=== PATIENT | male | born 1965 | race African-American/Black ===

== ENCOUNTER 2020-10-14 07:13 | Emergency (ER) | payer OTHER ==
[2020-10-14 07:18] VITALS: TEMP 97.8
[2020-10-14 07:41] LABS: Basophils % (A) 0 %; Eosinophils # (A) 0.4 k/uL (0-0.7); Eosinophils % (A) 7 %; HCT 38.7 % (39.0-53.0); HGB 12.6 gm/dL (13.0-17.5); Lymphocytes # (A) 1.6 k/uL (1.0-4.8); Lymphocytes % (A) 32 %; MCH 30.5 pg (25.0-35.0); MCHC 32.6 g/dL (31.0-37.0); MCV 93.5 fL (80.0-100.0); Mean Platelet Volume 7.4; Monocytes # (A) 0.3 k/uL (0-1.0); Monocytes % (A) 6 %; Neutrophils # (A) 2.6 k/uL (1.3-7.7); Neutrophils % (A) 50 %; Platelet Count 271 k/uL (150-450); RBC 4.13 m/uL (4.30-5.90); RDW 13.8 % (11.5-15.5); WBC 5.2 k/uL (3.8-10.6)
--- NOTE | 2020-10-14 07:45 | ED ---
General Adult HPI - General Chief complaint: Neuro Symptoms/Deficit Stated complaint: Blurred Vision,Dizziness Time Seen by Provider: 10/14/20 07:19 Source: patient, RN notes reviewed, old records reviewed Mode of arrival: ambulatory Limitations: no limitations - History of Present Illness Initial comments: 55 yo female presenting with multiple complaints. Patient states he has had some headache, lightheadedness, intermittent chest discomfort and exertional dyspnea. The symptoms have all been progressing over the past several weeks but worsened specifically over the past one week. He denies focal numbness or weakness. He does feel unsteady on his feet. Headache is predominantly occipital. Not the worse headache of his life, not a thunderclap headache. He has some discomfort in his chest with associated dyspnea as well. He has a history of hypertension currently on lisinopril. - Related Data Previous Rx's Medication Instructions Recorded Meclizine [Antivert] 25 mg PO TID PRN #21 tab 10/14/20 Allergies Allergy/AdvReac Type Severity Reaction Status Date / Time No Known Allergies Allergy Verified 10/14/20 07:16 Review of Systems ROS Statement: Those systems with pertinent positive or pertinent negative responses have been documented in the HPI. ROS Other: All systems not noted in ROS Statement are negative. Past Medical History Past Medical History: Hypertension History of Any Multi-Drug Resistant Organisms: None Reported Past Surgical History: No Surgical Hx Reported Past Psychological History: No Psychological Hx Reported, Depression Smoking Status: Current every day smoker Past Alcohol Use History: None Reported Past Drug Use History: None Reported General Exam Limitations: no limitations General appearance: alert, in no apparent distress Head exam: Present: atraumatic, normocephalic Eye exam: Present: normal appearance, PERRL ENT exam: Present: normal exam Neck exam: Present: normal inspection. Absent: tenderness, meningismus Respiratory exam: Present: normal lung sounds bilaterally. Absent: respiratory distress, wheezes Cardiovascular Exam: Present: regular rate, normal rhythm Extremities exam: Present: normal inspection, normal capillary refill. Absent: pedal edema Neurological exam: Present: alert, oriented X3, CN II-XII intact, other (No focal weakness, no limb ataxia). Absent: motor sensory deficit Psychiatric exam: Present: normal affect, normal mood Skin exam: Present: warm, dry, intact. Absent: cyanosis, diaphoretic Course Vital Signs 10/14/20 10/14/20 07:16 08:32 Temperature 97.8 F Pulse Rate 63 55 L Respiratory 18 16 Rate Blood Pressure 163/79 150/86 O2 Sat by Pulse 99 99 Oximetry EKG Findings - EKG Comments: EKG Findings:: EKG: Sinus bradycardia with a first-degree AV block, rate 54, MI interval 226, QRS duration 92, QTC 417, no ST segment elevation. Medical Decision Making - Medical Decision Making 55-year-old with intermittent symptoms over the month including some intermittent blurred vision, headache, dizziness, and chest discomfort. He does not currently have a primary care physician. He has no focal numbness or weakness. He has no ataxia. He is overall well-appearing. NIH is 0. Symptoms have been ongoing for one month. Head CT performed which is negative for intracranial hemorrhage or mass effect. Chest x-rays negative for acute cardiopulmonary findings. He is mildly anemic with a hemoglobin of 12.6, no oth er lab abnormalities including normal CMP, normal CBC with the exception of anemia and a negative troponin. His EKG is sinus bradycardia with a first- degree AV block. He is on a beta indio. He is given referral to both primary care physician and to a neurologist regarding these ongoing symptoms. He is given strict return parameters. - Lab Data Result diagrams: 10/14/20 07:34 10/14/20 07:34 Lab Results 10/14/20 10/14/20 10/14/20 Range/Units 07:34 07:34 07:34 WBC 5.2 (3.8-10.6) k/uL RBC 4.13 L (4.30-5.90) m/uL Hgb 12.6 L (13.0-17.5) gm/dL Hct 38.7 L (39.0-53.0) % MCV 93.5 (80.0-100.0) fL MCH 30.5 (25.0-35.0) pg MCHC 32.6 (31.0-37.0) g/dL RDW 13.8 (11.5-15.5) % Plt Count 271 (150-450) k/uL MPV 7.4 Neutrophils % 50 % Lymphocytes % 32 % Monocytes % 6 % Eosinophils % 7 % Basophils % 0 % Neutrophils # 2.6 (1.3-7.7) k/uL Lymphocytes # 1.6 (1.0-4.8) k/uL Monocytes # 0.3 (0-1.0) k/uL Eosinophils # 0.4 (0-0.7) k/uL Basophils # 0.0 (0-0.2) k/uL PT 10.3 (9.0-12.0) sec INR 1.0 (<1.2) APTT 24.5 (22.0-30.0) sec Sodium 141 (137-145) mmol/L Potassium 4.5 (3.5-5.1) mmol/L Chloride 107 (98-107) mmol/L Carbon Dioxide 30 (22-30) mmol/L Anion Gap 4 mmol/L BUN 16 (9-20) mg/dL Creatinine 0.69 (0.66-1.25) mg/dL Est GFR (CKD-EPI)AfAm >90 (>60 ml/min/1.73 sqM) Est GFR (CKD-EPI)NonAf >90 (>60 ml/min/1.73 sqM) Glucose 115 H (74-99) mg/dL Calcium 9.2 (8.4-10.2) mg/dL Total Bilirubin 0.7 (0.2-1.3) mg/dL AST 47 (17-59) U/L ALT 57 H (4-49) U/L Alkaline Phosphatase 64 (38-126) U/L Troponin I (0.000-0.034) ng/mL Total Protein 7.6 (6.3-8.2) g/dL Albumin 4.1 (3.5-5.0) g/dL 10/14/20 Range/Units 07:34 WBC (3.8-10.6) k/uL RBC (4.30-5.90) m/uL Hgb (13.0-17.5) gm/dL Hct (39.0-53.0) % MCV (80.0-100.0) fL MCH (25.0-35.0) pg MCHC (31.0-37.0) g/dL RDW (11.5-15.5) % Plt Count (150-450) k/uL MPV Neutrophils % % Lymphocytes % % Monocytes % % Eosinophils % % Basophils % % Neutrophils # (1.3-7.7) k/uL Lymphocytes # (1.0-4.8) k/uL Monocytes # (0-1.0) k/uL Eosinophils # (0-0.7) k/uL Basophils # (0-0.2) k/uL PT (9.0-12.0) sec INR (<1.2) APTT (22.0-30.0) sec Sodium (137-145) mmol/L Potassium (3.5-5.1) mmol/L Chloride (98-107) mmol/L Carbon Dioxide (22-30) mmol/L Anion Gap mmol/L BUN (9-20) mg/dL Creatinine (0.66-1.25) mg/dL Est GFR (CKD-EPI)AfAm (>60 ml/min/1.73 sqM) Est GFR (CKD-EPI)NonAf (>60 ml/min/1.73 sqM) Glucose (74-99) mg/dL Calcium (8.4-10.2) mg/dL Total Bilirubin (0.2-1.3) mg/dL AST (17-59) U/L ALT (4-49) U/L Alkaline Phosphatase (38-126) U/L Troponin I <0.012 (0.000-0.034) ng/mL Total Protein (6.3-8.2) g/dL Albumin (3.5-5.0) g/dL Disposition Clinical Impression: Headache, Vertigo Disposition: HOME SELF-CARE Condition: Fair Instructions (If sedation given, give patient instructions): Acute Headache (ED), Vertigo (ED) Additional Instructions: Please take 81 mg aspirin daily. Please establish care with a primary care physician and please follow up with neurology regarding these ongoing symptoms. Please return with worsening or changing symptoms. Prescriptions: Meclizine [Antivert] 25 mg PO TID PRN #21 tab PRN Reason: Vertigo Is patient prescribed a controlled substance at d/c from ED?: No Referrals: Nonstaff,Physician [Primary Care Provider] - 1-2 days Luisa Dunaway MD [REFERRING] - 1-2 days Jayna Pérez MD [REFERRING] - 1-2 days Nando Ordaz MD [STAFF PHYSICIAN] - 1-2 days Time of Disposition: 08:34
[2020-10-14 07:50] LABS: ALT 57 U/L (4-49); AST 47 U/L (17-59); African American GFR (CKD) >90 (>60 ml/min/1.73 sqM); Albumin 4.1 g/dL (3.5-5.0); Alkaline Phosphatase 64 U/L (38-126); Anion Gap 4 mmol/L; Blood Urea Nitrogen 16 mg/dL (9-20); Calcium 9.2 mg/dL (8.4-10.2); Carbon Dioxide 30 mmol/L (22-30); Chloride 107 mmol/L (98-107); Glucose 115 mg/dL (74-99); Non-African American GFR(CKD) >90 (>60 ml/min/1.73 sqM); Potassium 4.5 mmol/L (3.5-5.1); Sodium 141 mmol/L (137-145); Total Bilirubin 0.7 mg/dL (0.2-1.3); Total Protein 7.6 g/dL (6.3-8.2)
[2020-10-14 07:52] LABS: Partial Thromboplastin Time 24.5 sec (22.0-30.0); Prothrombin Time 10.3 sec (9.0-12.0)
--- NOTE | 2020-10-14 07:58 | XR ---
EXAMINATION TYPE: XR chest 2V DATE OF EXAM: 10/14/2020 COMPARISON: NONE HISTORY: Chest pain. Dizziness. TECHNIQUE: Frontal and lateral views of the chest are obtained. FINDINGS: Overlying EKG leads. There is no focal air space opacity, pleural effusion, or pneumothorax seen. The cardiac silhouette size is within normal limits. Multilevel spurring in the thoracic spin e. IMPRESSION: No acute cardiopulmonary process.
--- NOTE | 2020-10-14 07:59 | CT ---
EXAMINATION TYPE: CT brain wo con DATE OF EXAM: 10/14/2020 HISTORY: dizziness, acute onset neuro deficit. CT DLP: 1099.4 mGycm. Automated Exposure Control for Dose Reduction was Utilized. TECHNIQUE: CT scan of the head is performed without contrast. COMPARISON: None. FINDINGS: There is no acute intracranial hemorrhage or midline shift identified. Ventricles and sul ci are within normal limits in size for patient's age. Montague-white matter differentiation fairly well- maintained. The calvarium is intact. The globes are intact and the visualized sinuses are clear. IMPRESSION: No acute intracranial hemorrhage or midline shift. Unremarkable study.
[2020-10-14] MEDS ORDERED: ASPIRIN 325 MG TAB PO STA (08:32)
[2020-10-14] MEDS ORDERED: MECLIZINE 12.5 MG TAB PO STA (08:32)
[2020-10-14 08:33] VITALS: BP 150/86; PULSE 55; RESP 16
== END 2020-10-14 08:51 | disposition home or self-care (01) ==
LOC: EC 07:13
DX: R51.9 Headache, unspecified (principal); R42 Dizziness and giddiness; R07.89 Other chest pain; I44.0 Atrioventricular block, first degree; F17.200 Nicotine dependence, unspecified, uncomplicated
CPT/HCPCS: 36415; 70450; 71046; 80053; 84484; 85025; 85610; 85730; 93005; 99285

== ENCOUNTER 2020-10-16 06:10 | Observation (INO) | payer OTHER ==
[2020-10-16] MEDS ORDERED: MECLIZINE 12.5 MG TAB PO STA (06:33)
[2020-10-16] MEDS ORDERED: DIAZEPAM 5 MG/ML 2 ML INJ IVP STA (06:33)
[2020-10-16] MEDS ORDERED: SODIUM CHLORIDE 0.9% 500 ML 500 ML IV STA (06:33)
[2020-10-16] MEDS ORDERED: SODIUM CHLORIDE 0.9% 1,000 ML IV STA (06:33)
--- NOTE | 2020-10-16 06:37 | ED ---
General Adult HPI <LeeRik - Last Filed: 10/16/20 08:03> - General Source: patient, family, RN notes reviewed Mode of arrival: ambulatory Limitations: no limitations <Minh Woods - Last Filed: 10/16/20 08:09> - General Chief complaint: Dizziness Stated complaint: dizziness,headache Time Seen by Provider: 10/16/20 06:24 - History of Present Illness Initial comments: This a 55-year-old male presents emergency Department with chief complaint of ongoing dizziness. Patient states she was seen here 2 days ago for similar complaints. Symptoms started a few weeks ago but have progressively worsened. He states his bouts of dizziness with the room spins but also feels lightheaded when he feels occasional pass out. Patient states he nearly fell over 4 times yesterday. Patient has no focal weakness including upper and lower extremities. He has had some intermittent headaches area patient had CT of his brain which was within normal limits. Patient did not give any relief with Antivert at home. Patient denies any paresthesias. Denies any current changes of vision but states that he has poor vision. He has not had his eyes checked in years. Patient denies any nausea, vomiting, diarrhea constipation no chest pain or palpitations today. Patient states he has had chest pain he had some chest pain yesterday. (Minh Woods) - Related Data Home Medications Medication Instructions Recorded Confirmed Ibuprofen [Motrin] 800 mg PO Q8H PRN 10/16/20 10/16/20 Loratadine [Claritin] 10 mg PO DAILY PRN 10/16/20 10/16/20 amLODIPine [Norvasc] 10 mg PO DAILY 10/16/20 10/16/20 carvediloL [Carvedilol] 25 mg PO BID 10/16/20 10/16/20 hydroCHLOROthiazide 25 mg PO DAILY 10/16/20 10/16/20 Previous Rx's Medication Instructions Recorded Meclizine [Antivert] 25 mg PO TID PRN #21 tab 10/14/20 Allergies Allergy/AdvReac Type Severity Reaction Status Date / Time No Known Allergies Allergy Verified 10/16/20 08:04 Review of Systems ROS Other: All systems not noted in ROS Statement are negative. <Rik Howard - Last Filed: 10/16/20 08:03> ROS Other: All systems not noted in ROS Statement are negative. <Minh Woods - Last Filed: 10/16/20 08:09> ROS Statement: Those systems with pertinent positive or pertinent negative responses have been documented in the HPI. Past Medical History Past Medical History: Hypertension History of Any Multi-Drug Resistant Organisms: None Reported Past Surgical History: No Surgical Hx Reported Past Psychological History: No Psychological Hx Reported, Depression Smoking Status: Current every day smoker Past Alcohol Use History: None Reported Past Drug Use History: None Reported <Minh Woods - Last Filed: 10/16/20 08:09> General Exam Limitations: no limitations General appearance: alert, in no apparent distress Head exam: Present: atraumatic, normocephalic, normal inspection Eye exam: Present: normal appearance, PERRL, EOMI. Absent: scleral icterus, conjunctival injection, periorbital swelling ENT exam: Present: normal exam, normal oropharynx, mucous membranes moist, TM's normal bilaterally, normal external ear exam Neck exam: Present: normal inspection, full ROM. Absent: tenderness, meningismus, lymphadenopathy Respiratory exam: Present: normal lung sounds bilaterally. Absent: respiratory distress, wheezes, rales, rhonchi, stridor Cardiovascular Exam: Present: regular rate, normal rhythm, normal heart sounds. Absent: systolic murmur, diastolic murmur, rubs, gallop, clicks GI/Abdominal exam: Present: soft, normal bowel sounds. Absent: distended, tenderness, guarding, rebound, rigid Neurological exam: Present: alert, oriented X3, CN II-XII intact, reflexes normal, other (Finger to nose intact bilaterally without over shooting). Absent: motor sensory deficit Skin exam: Present: warm, dry, intact, normal color. Absent: rash <Minh Woods - Last Filed: 10/16/20 08:09> Course <Rik Howard - Last Filed: 10/16/20 08:03> Vital Signs 10/16/20 10/16/20 06:13 07:30 Temperature 98.8 F 98.2 F Pulse Rate 68 55 L Respiratory 20 16 Rate Blood Pressure 161/82 143/78 O2 Sat by Pulse 99 100 Oximetry - Reevaluation(s) Reevaluation #1: 10/16/20 08:03 PA supervision: I personally evaluate this case patient does present with recurrent dizziness and chest pain he did have a complete workup 2 days ago. Patient will again be admitted for further evaluation I did discuss the case with Dr. Hancock (Rik Howard) EKG Findings - EKG Comments: EKG Findings:: EKG performed at 6:24 sinus rhythm first-degree block, rate of 61 MO 226 QRS 120 QT/QTC 426/428 <Minh Woods - Last Filed: 10/16/20 08:09> Medical Decision Making - Lab Data Result diagrams: 10/16/20 06:37 10/16/20 06:36 <Rik Howard - Last Filed: 10/16/20 08:03> - Lab Data Result diagrams: 10/16/20 06:37 10/16/20 06:36 <Minh Woods - Last Filed: 10/16/20 08:09> - Medical Decision Making 55-year-old male presented for dizziness. This is been intractable dizziness. Patient prior CT which was unremarkable. Patient will be admitted for neurology consult. (Minh Woods) - Lab Data Lab Results 10/16/20 10/16/20 10/16/20 Range/Units 06:36 06:37 06:37 WBC 4.9 (3.8-10.6) k/uL RBC 4.07 L (4.30-5.90) m/uL Hgb 13.0 (13.0-17.5) gm/dL Hct 38.0 L (39.0-53.0) % MCV 93.6 (80.0-100.0) fL MCH 32.0 (25.0-35.0) pg MCHC 34.2 (31.0-37.0) g/dL RDW 13.3 (11.5-15.5) % Plt Count 255 (150-450) k/uL MPV 7.4 Neutrophils % 51 % Lymphocytes % 32 % Monocytes % 7 % Eosinophils % 7 % Basophils % 1 % Neutrophils # 2.5 (1.3-7.7) k/uL Lymphocytes # 1.6 (1.0-4.8) k/uL Monocytes # 0.3 (0-1.0) k/uL Eosinophils # 0.3 (0-0.7) k/uL Basophils # 0.1 (0-0.2) k/uL D-Dimer (<0.60) mg/L FEU Sodium 140 (137-145) mmol/L Potassium 3.8 (3.5-5.1) mmol/L Chloride 106 (98-107) mmol/L Carbon Dioxide 29 (22-30) mmol/L Anion Gap 5 mmol/L BUN 14 (9-20) mg/dL Creatinine 0.78 (0.66-1.25) mg/dL Est GFR (CKD-EPI)AfAm >90 (>60 ml/min/1.73 sqM) Est GFR (CKD-EPI)NonAf >90 (>60 ml/min/1.73 sqM) Glucose 116 H (74-99) mg/dL Calcium 9.2 (8.4-10.2) mg/dL Total Bilirubin 0.7 (0.2-1.3) mg/dL AST 30 (17-59) U/L ALT 44 (4-49) U/L Alkaline Phosphatase 71 (38-126) U/L Troponin I <0.012 (0.000-0.034) ng/mL Total Protein 7.4 (6.3-8.2) g/dL Albumin 4.1 (3.5-5.0) g/dL Urine Opiates Screen (NotDetected) Ur Oxycodone Screen (NotDetected) Urine Methadone Screen (NotDetected) Ur Propoxyphene Screen (NotDetected) Ur Barbiturates Screen (NotDetected) U Tricyclic Antidepress (NotDetected) Ur Phencyclidine Scrn (NotDetected) Ur Amphetamines Screen (NotDetected) U Methamphetamines Scrn (NotDetected) U Benzodiazepines Scrn (NotDetected) Urine Cocaine Screen (NotDetected) U Marijuana (THC) Screen (NotDetected) 10/16/20 10/16/20 Range/Units 06:37 06:50 WBC (3.8-10.6) k/uL RBC (4.30-5.90) m/uL Hgb (13.0-17.5) gm/dL Hct (39.0-53.0) % MCV (80.0-100.0) fL MCH (25.0-35.0) pg MCHC (31.0-37.0) g/dL RDW (11.5-15.5) % Plt Count (150-450) k/uL MPV Neutrophils % % Lymphocytes % % Monocytes % % Eosinophils % % Basophils % % Neutrophils # (1.3-7.7) k/uL Lymphocytes # (1.0-4.8) k/uL Monocytes # (0-1.0) k/uL Eosinophils # (0-0.7) k/uL Basophils # (0-0.2) k/uL D-Dimer 0.46 (<0.60) mg/L FEU Sodium (137-145) mmol/L Potassium (3.5-5.1) mmol/L Chloride (98-107) mmol/L Carbon Dioxide (22-30) mmol/L Anion Gap mmol/L BUN (9-20) mg/dL Creatinine (0.66-1.25) mg/dL Est GFR (CKD-EPI)AfAm (>60 ml/min/1.73 sqM) Est GFR (CKD-EPI)NonAf (>60 ml/min/1.73 sqM) Glucose (74-99) mg/dL Calcium (8.4-10.2) mg/dL Total Bilirubin (0.2-1.3) mg/dL AST (17-59) U/L ALT (4-49) U/L Alkaline Phosphatase (38-126) U/L Troponin I (0.000-0.034) ng/mL Total Protein (6.3-8.2) g/dL Albumin (3.5-5.0) g/dL Urine Opiates Screen Not Detected (NotDetected) Ur Oxycodone Screen Not Detected (NotDetected) Urine Methadone Screen Not Detected (NotDetected) Ur Propoxyphene Screen Not Detected (NotDetected) Ur Barbiturates Screen Not Detected (NotDetected) U Tricyclic Antidepress Not Detected (NotDetected) Ur Phencyclidine Scrn Not Detected (NotDetected) Ur Amphetamines Screen Not Detected (NotDetected) U Methamphetamines Scrn Not Detected (NotDetected) U Benzodiazepines Scrn Not Detected (NotDetected) Urine Cocaine Screen Not Detected (NotDetected) U Marijuana (THC) Screen Not Detected (NotDetected) Disposition <Rik Howard - Last Filed: 10/16/20 08:03> <Minh Woods M - Last Filed: 10/16/20 08:09> Clinical Impression: Vertigo, Headache Disposition: ADMITTED IP TO THIS [facility] Condition: Fair Referrals: Nonstaff,Physician [REFERRING] - 1-2 days
[2020-10-16 07:06] LABS: Basophils # (A) 0.1 k/uL (0-0.2); Basophils % (A) 1 %; Eosinophils # (A) 0.3 k/uL (0-0.7); Eosinophils % (A) 7 %; Lymphocytes # (A) 1.6 k/uL (1.0-4.8); Lymphocytes % (A) 32 %; MCHC 34.2 g/dL (31.0-37.0); MCV 93.6 fL (80.0-100.0); Mean Platelet Volume 7.4; Monocytes # (A) 0.3 k/uL (0-1.0); Monocytes % (A) 7 %; Neutrophils # (A) 2.5 k/uL (1.3-7.7); Neutrophils % (A) 51 %; Platelet Count 255 k/uL (150-450); RBC 4.07 m/uL (4.30-5.90); RDW 13.3 % (11.5-15.5); WBC 4.9 k/uL (3.8-10.6)
[2020-10-16 07:19] LABS: ALT 44 U/L (4-49); AST 30 U/L (17-59); African American GFR (CKD) >90 (>60 ml/min/1.73 sqM); Albumin 4.1 g/dL (3.5-5.0); Alkaline Phosphatase 71 U/L (38-126); Anion Gap 5 mmol/L; Blood Urea Nitrogen 14 mg/dL (9-20); Calcium 9.2 mg/dL (8.4-10.2); Carbon Dioxide 29 mmol/L (22-30); Chloride 106 mmol/L (98-107); Glucose 116 mg/dL (74-99); Non-African American GFR(CKD) >90 (>60 ml/min/1.73 sqM); Potassium 3.8 mmol/L (3.5-5.1); Sodium 140 mmol/L (137-145); Total Bilirubin 0.7 mg/dL (0.2-1.3); Total Protein 7.4 g/dL (6.3-8.2)
[2020-10-16 07:53] LABS: Cocaine Screen,Urine Not Detected (NotDetected); Phencyclidine Screen,Urine Not Detected (NotDetected); Urn Cannabinoid Scrn Not Detected (NotDetected)
[2020-10-16 07:56] LABS: Amphetamine Screen,Urine Not Detected (NotDetected); Barbiturate Screen,Urine Not Detected (NotDetected); Benzodiazepines Screen,Urine Not Detected (NotDetected); Methadone Screen, Urine Not Detected (NotDetected); Opiate Screen,Urine Not Detected (NotDetected); Oxycodone Screen, Urine Not Detected (NotDetected); Tricyclic Antidepressant,Urine Not Detected (NotDetected)
[2020-10-16] MEDS ORDERED: NALOXONE 0.4 MG/ML 1 ML VIAL IV PRN (08:09)
[2020-10-16] MEDS ORDERED: ONDANSETRON 4 MG/2 ML VIAL IVP PRN (08:09)
[2020-10-16] MEDS ORDERED: MECLIZINE 25 MG TAB PO PRN (08:10)
[2020-10-16] MEDS ORDERED: IBUPROFEN 800 MG TAB PO PRN (13:34)
[2020-10-16] MEDS ORDERED: LORATADINE 10 MG TAB PO PRN (13:34)
--- NOTE | 2020-10-16 13:40 | P.HPIM ---
History of Present Illness Patient is a pleasant 55-year-old male came in with compensative vertigo patient has the symptoms going on for about the 2 weeks without any improvement with meclizine. Patient was seen in ER yesterday CT of the head was opted which was within normal limits and patient was given Antivert again and was discharged home. Patient denied any ataxia. Patient denied any hearing problems ringing in the ears. Patient denied any visual problems. Patient the gait is within normal limits. Patient the vertigo started whenever he mows his head to one side and or whenever he stands up from sitting or lying down position denied any fullness in the ears denied any recent flulike symptoms denied any blurry vision. I did perform Dikd- Halspike maneuver without any significant improvement in his symptoms patient didn't have any nystagmus either horizontal or vertical that maneuver Review of Systems REVIEW OF SYSTEMS: CONSTITUTIONAL: No fever, no malaise, no fatigue. HEENT: No recent visual problems or hearing problems. Denied any sore throat. CARDIOVASCULAR: No chest pain, orthopnea, PND, no palpitations, no syncope. PULMONARY: No shortness of breath, no cough, no hemoptysis. GASTROINTESTINAL: No diarrhea, no nausea, no vomiting, no abdominal pain. NEUROLOGICAL: No headaches, no weakness, no numbness. HEMATOLOGICAL: Denies any bleeding or petechiae. GENITOURINARY: Denies any burning micturition, frequency, or urgency. MUSCULOSKELETAL/RHEUMATOLOGICAL: Denies any joint pain, swelling, or any muscle pain. ENDOCRINE: Denies any polyuria or polydipsia. The rest of the 14-point review of systems is negative. Past Medical History Past Medical History: Hypertension History of Any Multi-Drug Resistant Organisms: None Reported Past Surgical History: No Surgical Hx Reported Past Psychological History: No Psychological Hx Reported, Depression Smoking Status: Current every day smoker Past Alcohol Use History: None Reported Past Drug Use History: None Reported Medications and Allergies Home Medications Medication Instructions Recorded Confirmed Type Meclizine [Antivert] 25 mg PO TID PRN #21 tab 10/14/20 10/16/20 Rx Ibuprofen [Motrin] 800 mg PO Q8H PRN 10/16/20 10/16/20 History Loratadine [Claritin] 10 mg PO DAILY PRN 10/16/20 10/16/20 History amLODIPine [Norvasc] 10 mg PO DAILY 10/16/20 10/16/20 History carvediloL [Carvedilol] 25 mg PO BID 10/16/20 10/16/20 History hydroCHLOROthiazide 25 mg PO DAILY 10/16/20 10/16/20 History Allergies Allergy/AdvReac Type Severity Reaction Status Date / Time No Known Allergies Allergy Verified 10/16/20 08:04 Physical Exam Vitals: Vital Signs Temp Pulse Resp BP Pulse Ox 10/16/20 10:39 55 L 18 144/83 98 10/16/20 07:30 98.2 F 55 L 16 143/78 100 10/16/20 06:13 98.8 F 68 20 161/82 99 Intake and Output 10/15/20 10/16/20 10/16/20 22:59 06:59 14:59 Other: Weight 122.47 kg PHYSICAL EXAMINATION: GENERAL: The patient is alert and oriented x3, not in any acute distress. Well developed, well nourished. HEENT: Pupils are round and equally reacting to light. EOMI. No scleral icterus. No conjunctival pallor. Normocephalic, atraumatic. No pharyngeal erythema. No thyromegaly. CARDIOVASCULAR: S1 and S2 present. No murmurs, rubs, or gallops. PULMONARY: Chest is clear to auscultation, no wheezing or crackles. ABDOMEN: Soft, nontender, nondistended, normoactive bowel sounds. No palpable organomegaly. MUSCULOSKELETAL: No joint swelling or deformity. EXTREMITIES: No cyanosis, clubbing, or pedal edema. NEUROLOGICAL: Gross neurological examination did not reveal any focal deficits. SKIN: No rashes. Results CBC & Chem 7: 10/16/20 06:37 10/16/20 06:36 Labs: Abnormal Lab Results - Last 24 Hours (Table) 10/16/20 10/16/20 Range/Units 06:36 06:37 RBC 4.07 L (4.30-5.90) m/uL Hct 38.0 L (39.0-53.0) % Glucose 116 H (74-99) mg/dL Assessment and Plan Plan: -Vertigo appears to be peripheral vertigo patient doesn't have any similar signs, patient may need vestibular rehab which is unfortunately not available in this town. Aspirin the patient requested consul neurology will monitor him overnight. -Hypertension: Patient will be resumed on his home regimen -Nicotine abuse: Counseling was provided -Depression next and heparin DVT prophylaxis: Ambulation
[2020-10-16 15:57] VITALS: BP 139/71; PULSE 64; RESP 16; TEMP 97.6
[2020-10-16] MEDS ORDERED: carvediloL 12.5 MG TAB PO SCH (17:30)
--- NOTE | 2020-10-16 17:35 | P.CNNES ---
History of Present Illness Consult date: 10/16/20 Requesting physician: Minh Woods Reason for Consult: Intractable dizziness, headache History of Present Illness: Patient is a 55-year-old male, came to the hospital today at 6:10 AM for vertigo. Patient states his symptoms started 2 weeks ago with dizziness. Symptoms have gotten worse in the last 3 days and he feels his equilibrium is off, particularly when he looks to the left or the right side. Or when he gets up. He feels lack of energy, denies any cough or fever although he does feel sweating at times. Patient denies any history of trauma, or any chiropractic manipulations. Once in a while he can hear something moving inside his right ear. Denies nausea vomiting or diplopia although sometimes gets blurred vision. Patient denies any symptoms of upper respiratory infection, tinnitus, loss of hearing or pain in the ear. He has not paid attention if the dizziness occurs when he rolls over in the bed. Certain movements, like when he gets up, or when he turns head looking to left or right makes him dizzy. EKG shows sinus rhythm with first-degree AV block. Occasional PVCs. CT head from 10/14/2020 showed no acute intracranial hemorrhage or midline shift. Visualized paranasal sinuses and external auditory canals are clear. Chest x- ray showed no acute process. Patient states that he had similar dizziness a year ago but it only lasted for a couple seconds. Patient has smoked 3-4 cigarettes per day for 20 years. Never a heavy smoker. Patient has hypertension but no diabetes. Denies any alcohol use. Denies any family history of MS. Review of Systems Patient has been having some headaches. Denies slurred speech facial droop, focal weakness, numbness or tingling. Denies chest pain shortness of breath, wheezing or cough, abdominal pain nausea vomiting. No cough. Complains of fatigue and lack of energy. All other review of systems unremarkable. Past Medical History Past Medical History: Hypertension History of Any Multi-Drug Resistant Organisms: None Reported Past Surgical History: No Surgical Hx Reported Past Anesthesia/Blood Transfusion Reactions: No Reported Reaction Past Psychological History: No Psychological Hx Reported, Depression Smoking Status: Current every day smoker Past Alcohol Use History: None Reported Past Drug Use History: None Reported Medications and Allergies Home Medications Medication Instructions Recorded Confirmed Type Meclizine [Antivert] 25 mg PO TID PRN #21 tab 10/14/20 10/16/20 Rx Ibuprofen [Motrin] 800 mg PO Q8H PRN 10/16/20 10/16/20 History Loratadine [Claritin] 10 mg PO DAILY PRN 10/16/20 10/16/20 History amLODIPine [Norvasc] 10 mg PO DAILY 10/16/20 10/16/20 History carvediloL [Carvedilol] 25 mg PO BID 10/16/20 10/16/20 History hydroCHLOROthiazide 25 mg PO DAILY 10/16/20 10/16/20 History methylPREDNISolone Dose Pack 4 mg PO DIRECTED #21 package 10/16/20 Rx [Medrol Dose Pack] Allergies Allergy/AdvReac Type Severity Reaction Status Date / Time No Known Allergies Allergy Verified 10/16/20 08:04 Physical Examination - Vital Signs Vital Signs: Vital Signs Temp Pulse Pulse Pulse Pulse Resp BP 10/16/20 14:00 18 10/16/20 13:05 98.2 F 62 68 60 18 10/16/20 10:39 55 L 18 144/83 10/16/20 07:30 98.2 F 55 L 16 143/78 10/16/20 06:13 98.8 F 68 20 161/82 BP BP BP Pulse Ox 10/16/20 14:00 10/16/20 13:05 138/70 171/80 148/70 97 10/16/20 10:39 98 10/16/20 07:30 100 10/16/20 06:13 99 Intake and Output 10/16/20 10/16/20 10/16/20 06:59 14:59 22:59 Other: Voiding Method Toilet Weight 122.47 kg 122.47 kg On examination patient is a middle aged Afro-[place] male, in no distress. He is alert and awake fully oriented. Speech and language functions are normal. Attention, concentration and fund of knowledge is adequate. On cranial nerve examination pupils are round and reactive to light, visual michael are full on confrontation, extraocular muscles are intact with no nystagmus. Face is symmetric, tongue protrudes to the midline. Palatal elevation and sensation normal, hearing and shoulder shrug normal. Facial sensations normal. On muscle strength testing there is no pronator drift and the strength is completely normal in arms and legs distally and proximally. Reflexes are 2+ in the upper limbs, 2+ at the knees, 1+ ankles and plantars are downgoing bilaterally. No clonus. Sensory touch is equal with no neglect. No ataxia for [id number] or [id number] testing. Tone and bulk of muscles normal. Gait appears very steady, normal stride and base. On general examination there is no carotid bruit or murmur, peripheral pulses present. Abdomen soft nontender, chest clear. Results - Laboratory Findings CBC and BMP: 10/16/20 06:37 10/16/20 06:36 Abnormal Lab Findings: Abnormal Labs 10/16/20 10/16/20 06:36 06:37 RBC 4.07 L Hct 38.0 L Glucose 116 H Assessment and Plan Assessment: * Vertigo, probably benign positional vertigo. Doubt labyrinthitis, as patient did not have any nausea or vomiting. * Hypertension * Obesity Plan: * We will check carotid Doppler to rule out stenosis. * Patient will continue Antivert as needed. * Patient was given prescription of Medrol Dosepak to be taken as directed. * If dizziness persist, may consider ENT for VNG/ENG, and vestibular rehabilitation. The referrals were provided. * We will also check B12, folate, A1c and TSH. * Patient will be clear for discharge above test comes back negative. Addendum: 10/17/2020 7:30 pm Carotid Dopplers were performed which were normal. Showed <20% stenosis. B12 353, folate 10.1, TSH 1.28. Hemoglobin A1c 4.6. Called patient home, and informed him the results are normal. Patient states he has started taking steroids, slightly better. But still dizzy. He is planning to make an appointment with ENT on Monday. The dizziness still occurs only when he turns his head, otherwise has no dizziness.
--- NOTE | 2020-10-16 18:39 | US ---
EXAMINATION TYPE: US carotid duplex BILAT DATE OF EXAM: 10/16/2020 COMPARISON: NONE CLINICAL HISTORY: Dizziness, vertigo. Dizziness. EXAM MEASUREMENTS: RIGHT: Peak Systolic Velocity (PSV) cm/sec ----- Right CCA: 71.6 ----- Right ICA: 102.9 ----- Right ECA: 59.9 ICA/CCA ratio: 1.4 RIGHT: End Diastole cm/sec ----- Right CCA: 18.1 ----- Right ICA: 18.1 ----- Right ECA: 16.8 LEFT: Peak Systolic Velocity (PSV) cm/sec ----- Left CCA: 85.4 ----- Left ICA: 111.3 ----- Left ECA: 72.5 ICA/CCA ratio: 1.3 LEFT: End Diastole cm/sec ----- Left CCA: 19.2 ----- Left ICA: 20.8 ----- Left ECA: 11.1 VERTEBRALS (direction of flow): Right Vertebral: Antegrade Left Vertebral: Antegrade Rhythm: Normal Bilateral vessels dive deep. No significant stenosis seen IMPRESSION: There is antegrade flow in the vertebral arteries. The images and measurements suggest less than 20% stenosis in both internal carotid arteries. Criteria for Assigning % of Stenosis / Diameter reduction (Estimation based on the indirect measurements of the internal carotid artery velocities (ICA PSV). 1. Normal (no stenosis)=ICA PSV < 125 cm/s: ratio < 2.0: ICA EDV<40 cm/s. 2. Less than 50% stenosis=ICA PSV < 125 cm/s: ratio < 2.0: ICA EDV<40 cm/s. 3. 50 to 69% stenosis=ICA PSV of 125 to 230 cm/s: ration 2.0 ? 4.0: ICA EDV 40-100 cm/s. 4. Greater than 70% stenosis to near occlusion= ICA PSV > 230 cm/s: ratio > 4.0: ICA EDV > 100 cm/s. 5. Near occlusion= ICA PSV velocities may be low or undetectable: variable ratio and ICA EDV. 6. Total occlusion=unable to detect flow.
[2020-10-17 00:45] LABS: Folate, Serum 10.1 ng/mL
[2020-10-17 03:00] LABS: Hemoglobin A1C 4.6 % (4.0-6.0)
[2020-10-17] MEDS ORDERED: hydroCHLOROthiazide 25 MG TAB PO SCH (09:00)
[2020-10-17] MEDS ORDERED: amLODIPine 10 MG TAB PO SCH (09:00)
--- NOTE | 2020-10-20 13:49 | P.DS ---
Providers Date of admission: 10/16/20 08:09 Expected date of discharge: 10/16/20 Attending physician: Harriet Hancock Consults: 10/16/20 08:09 Consult Physician Urgent Consulting Provider: Letha Silva Consult Reason/Comments: Intractable dizziness, headache Do you want consulting provider notified?: Yes Primary care physician: Stated None Hospital Course: Patient was admitted for vertigo initially believed to have benign push vertigo, later neurology evaluated the patient they diagnosed him with labyrinthitis and gave him Medrol Dosepak and cleared for discharge and patient was discharged on the same day of admission please refer to HPI for further details. Patient Condition at Discharge: Fair Plan - Discharge Summary Discharge Rx Participant: No New Discharge Prescriptions: New methylPREDNISolone Dose Pack [Medrol Dose Pack] 4 mg PO DIRECTED #21 package No Action Meclizine [Antivert] 25 mg PO TID PRN #21 tab PRN Reason: Vertigo Ibuprofen [Motrin] 800 mg PO Q8H PRN PRN Reason: Pain hydroCHLOROthiazide 25 mg PO DAILY carvediloL [Carvedilol] 25 mg PO BID amLODIPine [Norvasc] 10 mg PO DAILY Loratadine [Claritin] 10 mg PO DAILY PRN PRN Reason: Allergy Symptoms Discharge Medication List Meclizine [Antivert] 25 mg PO TID PRN #21 tab 10/14/20 [Rx] Ibuprofen [Motrin] 800 mg PO Q8H PRN 10/16/20 [History] Loratadine [Claritin] 10 mg PO DAILY PRN 10/16/20 [History] amLODIPine [Norvasc] 10 mg PO DAILY 10/16/20 [History] carvediloL [Carvedilol] 25 mg PO BID 10/16/20 [History] hydroCHLOROthiazide 25 mg PO DAILY 10/16/20 [History] methylPREDNISolone Dose Pack [Medrol Dose Pack] 4 mg PO DIRECTED #21 package 10/16/20 [Rx] Follow up Appointment(s)/Referral(s): German Ding DO [Doctor of Osteopathic Medicine] - 1-2 Days (Please call for appointment time when office is open on Monday) Nonstaff,Physician [REFERRING] - 1 Week Patient Instructions/Handouts: Benign Paroxysmal Positional Vertigo (DC) Discharge Disposition: HOME SELF-CARE
== END 2020-10-16 19:45 | disposition home or self-care (01) ==
LOC: EC 06:10 → 1SOBS 08:09
PROVIDERS: ADMIT Internal Medicine; ATTEND Internal Medicine
DX: R42 Dizziness and giddiness (principal); H54.7 Unspecified visual loss; I10 Essential (primary) hypertension; I44.0 Atrioventricular block, first degree; F17.210 Nicotine dependence, cigarettes, uncomplicated; F32.9 Major depressive disorder, single episode, unspecified; E66.9 Obesity, unspecified; Z68.38 Body mass index [BMI] 38.0-38.9, adult; Z79.899 Other long term (current) drug therapy
CPT/HCPCS: 96360; 99285; 36415; 93005; 85379; 80053; 84443; 82607; 82746; 84484; 85025; 80306; 83036; 93880; G0378

== ENCOUNTER → 2020-10-27 | Outpatient (CLI) | payer OTHER ==
[2020-10-28 00:02] LABS: African American GFR (CKD) 116.6 (60.0-200.0); Non-African American GFR(CKD) 100.6 (60.0-200.0)
== END | disposition home or self-care (01) ==
LOC: LABWHC1 12:00
PROVIDERS: ATTEND Otolaryngology Otolaryngology/Facial Plastic Surgery
DX: R94.4 Abnormal results of kidney function studies (principal)
CPT/HCPCS: 36415; 82565; 84520